=== PATIENT | female | born 1945 | race Caucasian/White ===

== ENCOUNTER 2021-09-11 15:32 | Emergency (ER) | payer OTHER, SELFPAY ==
[~2021-09-11] VITALS: Ht 160 cm; Wt 56.2 kg
[2021-09-11 16:31] VITALS: BP_SYST 176
--- NOTE | 2021-09-11 16:40 | NUR ---
patient placed in room 3 Dr Wiggins notified, alert, oriented x3 c/o RLE pain/swelling for 1 week.ambulate with steady gait.
[2021-09-11] MEDS ORDERED: LABETALOL 100 MG/ 20ML VIAL IVP ONE ×2 (16:45→19:45)
[2021-09-11] MEDS ORDERED: MULT-1089 PO (16:47)
[2021-09-11] MEDS ORDERED: PROP80CA55 PO (16:47)
[2021-09-11] MEDS ORDERED: VITD400 PO (16:47)
[2021-09-11] MEDS ORDERED: MEMA10TA PO (16:47)
[2021-09-11] MEDS ORDERED: DIAZ5TAB4 PO (16:47)
[2021-09-11] MEDS ORDERED: ENAL10TA19 PO (16:47)
--- NOTE | 2021-09-11 16:55 | NUR ---
patient BP improved without Med administered Dr Wiggins notified, and replied to hold IV med.
[2021-09-11 17:24] LABS: ANION GAP 6 (5-15); CALCIUM 8.5 mg/dL (8.4-11.0); CHLORIDE 102 mmol/L (98-107); CREATININE 0.73 mg/dL (0.55-1.30); GLUCOSE 97 mg/dL (70-99); POTASSIUM 3.4 mmol/L (3.5-5.1); SODIUM SERUM 140 mmol/L (136-145); UREA NITROGEN, BLOOD 17 mg/dL (8-21)
[2021-09-11 17:27] LABS: EOSINOPHILS # (AUTO) 0.3 K/uL (0.0-0.4); EOSINOPHILS % (AUTO) 5.8 % (0.0-4.0); HEMATOCRIT 34.3 % (36-48); HEMOGLOBIN 11.5 g/dL (12.0-16.0); LYMPHOCYTES # (AUTO) 1.1 K/uL (1.0-5.5); LYMPHOCYTES % (AUTO) 23.4 % (20.5-51.5); MEAN CORPUSCULAR HEMOGLOBIN 30 pg (27-31); MEAN CORPUSCULAR HGB CONC 34 % (32-36); MEAN CORPUSCULAR VOLUME 89 fL (79.0-98.0); MONOCYTES # (AUTO) 0.5 K/uL (0.0-1.0); MONOCYTES % (AUTO) 10.4 % (1.7-9.3); NEUTROPHILS # (AUTO) 2.9 K/uL (1.8-7.7); NEUTROPHILS % (AUTO) 59.4 % (40.0-70.0); PLATELET COUNT (AUTO) 187 K/uL (130-430); RED BLOOD CELL COUNT(AUTO) 3.85 MIL/uL (4.2-6.2); RED CELL DISTRIBUTION WIDTH 14.7 % (9.0-15.0); WHITE BLOOD COUNT (AUTO) 4.8 K/uL (4.8-10.8)
[2021-09-11 17:44] LABS: ALANINE AMINOTRANSFERASE 15 U/L (12-78); ALBUMIN 3.1 g/dL (3.4-4.8); ASPARTATE AMINOTRANSFERASE 21 U/L (10-37); TOTAL BILIRUBIN 0.3 mg/dL (0.0-1.0)
--- NOTE | 2021-09-11 19:15 | NUR ---
PATIENT RESTING IN BED WITH EYES OPEN, NO C/O PAIN OR S/S OF DISCOMFORT. PATIENT'S CHEST RISE AND FALL SYMMETRICAL. BED IN LOW AND LOCKED POSITION.
--- NOTE | 2021-09-11 19:15 | NUR ---
report endorsed to nurse Cee all questions answered.
[2021-09-11 20:30] VITALS: BP_SYST 154
[2021-09-11] MEDS ORDERED: FUROSEMIDE 40 MG/4 ML VIAL IVP ONE (20:30)
[2021-09-11] MEDS ORDERED: POTA-197 PO (20:33)
--- NOTE | 2021-09-11 20:33 | NUR ---
ER doctor informed of patient's low potassium level and albumin level result. Er doctor stated that she "will give order for potassium but not albumin."
[2021-09-11] MEDS ORDERED: POTASSIUM CHLORIDE 20 MEQ/PKT PACKET PO ONE (20:45)
== END 2021-09-11 21:40 | disposition home or self-care (01) ==
LOC: SED 15:32
DX: R60.0 Localized edema (principal); D64.9 Anemia, unspecified; E87.70 Fluid overload, unspecified; E87.6 Hypokalemia; I10 Essential (primary) hypertension
CPT/HCPCS: 36415; 80053; 83880; 85025; 93971; 96374; 96376; 99285; J3490; 96375; 99284

== ENCOUNTER 2021-10-22 16:03 | Inpatient (IN) | payer OTHER, SELFPAY ==
[~2021-10-22] VITALS: Ht 157.5 cm; Wt 48.1 kg
[~2021-10-22 16:03] MED LIST: DIAZ5TAB4 PO; ENAL10TA19 PO; MEMA10TA PO; MULT-1089 PO; POTA-197 PO; PROP80CA55 PO; VITD400 PO
[2021-10-22 16:05] VITALS: BP_SYST 146
[2021-10-22 16:59] LABS: ANION GAP 7 (5-15); CALCIUM 9.4 mg/dL (8.4-11.0); CREATININE 0.82 mg/dL (0.55-1.30); GLUCOSE 113 mg/dL (70-99); UREA NITROGEN, BLOOD 20 mg/dL (8-21)
[2021-10-22 17:09] LABS: ALANINE AMINOTRANSFERASE 21 U/L (12-78); ALBUMIN 3.5 g/dL (3.4-4.8); ASPARTATE AMINOTRANSFERASE 26 U/L (10-37); TOTAL BILIRUBIN 0.1 mg/dL (0.0-1.0)
[2021-10-22 17:11] LABS: BASOPHILS % (AUTO) 0.4 % (0.0-2.0); EOSINOPHILS # (AUTO) 0.1 K/uL (0.0-0.4); EOSINOPHILS % (AUTO) 1.9 % (0.0-4.0); HEMATOCRIT 35.7 % (36-48); HEMOGLOBIN 12.1 g/dL (12.0-16.0); LYMPHOCYTES # (AUTO) 0.9 K/uL (1.0-5.5); LYMPHOCYTES % (AUTO) 22.2 % (20.5-51.5); MEAN CORPUSCULAR HEMOGLOBIN 29 pg (27-31); MEAN CORPUSCULAR HGB CONC 34 % (32-36); MEAN CORPUSCULAR VOLUME 86 fL (79.0-98.0); MONOCYTES # (AUTO) 0.6 K/uL (0.0-1.0); MONOCYTES % (AUTO) 13.1 % (1.7-9.3); NEUTROPHILS # (AUTO) 2.7 K/uL (1.8-7.7); NEUTROPHILS % (AUTO) 62.4 % (40.0-70.0); PLATELET COUNT (AUTO) 230 K/uL (130-430); RED BLOOD CELL COUNT(AUTO) 4.15 MIL/uL (4.2-6.2); RED CELL DISTRIBUTION WIDTH 14.6 % (9.0-15.0); WHITE BLOOD COUNT (AUTO) 4.3 K/uL (4.8-10.8)
[2021-10-22 17:14] LABS: POTASSIUM 2.7 mmol/L (3.5-5.1); SODIUM SERUM 117 mmol/L (136-145)
[2021-10-22 17:15] LABS: CHLORIDE 80 mmol/L (98-107)
[2021-10-22] MEDS ORDERED: KCL 20 mEq in 100 mL (PREMIX) 100 ML IV ONE (17:45)
[2021-10-22] MEDS ORDERED: KCL 40 mEq in 100 mL (PREMIX) 100 ML IV ONE (17:45)
[2021-10-22] MEDS ORDERED: FURO-150 PO (18:01)
[2021-10-22] MEDS ORDERED: HYG25 PO (18:01)
[2021-10-22] MEDS ORDERED: ENAL20TA18 PO (18:01)
[2021-10-22] MEDS ORDERED: ASPI-989 PO (18:01)
[2021-10-22] MEDS ORDERED: POTASSIUM CHLORIDE 20 MEQ TAB.PRT.SR PO ONE (19:00)
[2021-10-22 21:07] LABS: BILIRUBIN,URINE NEGATIVE (NEGATIVE); BLOOD, URINE NEGATIVE (NEGATIVE); CLARITY/URINE CLEAR (CLEAR); GLUCOSE,URINE NEGATIVE (NEGATIVE); KETONES,URINE NEGATIVE (NEGATIVE); LEUKOCYTE ESTERASE ,URINE NEGATIVE (NEGATIVE); NITRITE, URINE NEGATIVE (NEGATIVE); PH,URINE 6.5 (5.0-8.0); PROTEIN URINE NEGATIVE (NEGATIVE); UROBILINOGEN,URINE 0.2 (0.2-1.0)
[2021-10-22 21:09] LABS: COLOR,URINE STRAW (YELLOW)
[2021-10-22 21:56] VITALS: BP_SYST 139
[2021-10-23 00:04] VITALS: BP_SYST 139
[2021-10-23 00:14] VITALS: BP_SYST 124
[2021-10-23] MEDS ORDERED: NACL 0.9% 1,000 ML IV SCH (02:15)
[2021-10-23] MEDS ORDERED: ALBUTEROL SULFATE 0.083% 2.5 MG/3 ML VIAL.NEB INH PRN (02:15)
[2021-10-23] MEDS ORDERED: ACETAMINOPHEN 325 MG TABLET PO PRN (02:15)
[2021-10-23] MEDS ORDERED: ONDANSETRON HCL 4 MG/2 ML VIAL IVP PRN (02:15)
[2021-10-23 03:29] VITALS: BP_SYST 124
[2021-10-23 06:42] LABS: BASOPHILS % (AUTO) 0.4 % (0.0-2.0); EOSINOPHILS # (AUTO) 0.1 K/uL (0.0-0.4); EOSINOPHILS % (AUTO) 3.9 % (0.0-4.0); HEMATOCRIT 36.2 % (36-48); LYMPHOCYTES # (AUTO) 0.9 K/uL (1.0-5.5); LYMPHOCYTES % (AUTO) 27.6 % (20.5-51.5); MEAN CORPUSCULAR HEMOGLOBIN 29 pg (27-31); MEAN CORPUSCULAR HGB CONC 33 % (32-36); MEAN CORPUSCULAR VOLUME 87 fL (79.0-98.0); MONOCYTES # (AUTO) 0.5 K/uL (0.0-1.0); MONOCYTES % (AUTO) 15.8 % (1.7-9.3); NEUTROPHILS # (AUTO) 1.7 K/uL (1.8-7.7); NEUTROPHILS % (AUTO) 52.3 % (40.0-70.0); PLATELET COUNT (AUTO) 192 K/uL (130-430); RED BLOOD CELL COUNT(AUTO) 4.17 MIL/uL (4.2-6.2); RED CELL DISTRIBUTION WIDTH 14.6 % (9.0-15.0); WHITE BLOOD COUNT (AUTO) 3.2 K/uL (4.8-10.8)
[2021-10-23 07:01] LABS: ALANINE AMINOTRANSFERASE 17 U/L (12-78); ANION GAP 6 (5-15); ASPARTATE AMINOTRANSFERASE 26 U/L (10-37); CALCIUM 9.1 mg/dL (8.4-11.0); CHLORIDE 88 mmol/L (98-107); CREATININE 0.59 mg/dL (0.55-1.30); GLUCOSE 94 mg/dL (70-99); SODIUM SERUM 126 mmol/L (136-145); TOTAL BILIRUBIN 0.1 mg/dL (0.0-1.0); UREA NITROGEN, BLOOD 17 mg/dL (8-21)
[2021-10-23 07:48] LABS: POTASSIUM 2.3 mmol/L (3.5-5.1)
[2021-10-23 08:00] VITALS: BP_SYST 130
[2021-10-23] MEDS: POTASSIUM CHLORIDE 20 MEQ TAB.PRT.SR PO SCH (08:36)
[2021-10-23] MEDS: PROPRANOLOL HCL 80 MG (INDERAL LA 80MG) PO SCH (08:36)
[2021-10-23] MEDS: lisinopriL 20 MG TABLET PO SCH (08:36)
[2021-10-23] MEDS: MEMANTINE HCL 5 MG TABLET PO SCH ×2 (08:37→21:45)
[2021-10-23] MEDS: ASPIRIN 325 MG TABLET PO SCH (08:37)
[2021-10-23] MEDS ORDERED: POTASSIUM CHLORIDE 60 MEQ in NS 500 ML IV SCH (09:00)
[2021-10-23] MEDS ORDERED: ENALAPRIL MALEATE (VASOTEC) Non-Formular 10 MG TABLET PO SCH (09:00)
[2021-10-23 12:00] VITALS: BP_SYST 140
[2021-10-23 16:00] VITALS: BP_SYST 139
[2021-10-23] MEDS: NACL 0.9% 1,000 ML IV SCH (21:43)
[2021-10-24 00:10] VITALS: BP_SYST 147
[2021-10-24 04:00] VITALS: BP_SYST 156
[2021-10-24] MEDS: MEMANTINE HCL 5 MG TABLET PO SCH ×2 (08:33→20:41)
[2021-10-24] MEDS: ASPIRIN 325 MG TABLET PO SCH (08:33)
[2021-10-24] MEDS: POTASSIUM CHLORIDE 20 MEQ TAB.PRT.SR PO SCH (08:33)
[2021-10-24] MEDS: lisinopriL 20 MG TABLET PO SCH (08:33)
[2021-10-24] MEDS: PROPRANOLOL HCL 80 MG (INDERAL LA 80MG) PO SCH (08:34)
[2021-10-24 08:39] VITALS: BP_SYST 152
[2021-10-24 09:55] LABS: ALANINE AMINOTRANSFERASE 20 U/L (12-78); ANION GAP 5 (5-15); ASPARTATE AMINOTRANSFERASE 31 U/L (10-37); CALCIUM 9.6 mg/dL (8.4-11.0); CHLORIDE 96 mmol/L (98-107); CREATININE 0.65 mg/dL (0.55-1.30); GLUCOSE 102 mg/dL (70-99); POTASSIUM 3.2 mmol/L (3.5-5.1); SODIUM SERUM 131 mmol/L (136-145); THYROID STIMULATING HORMONE 2.47 uIu/mL (0.36-3.74); TOTAL BILIRUBIN 0.1 mg/dL (0.0-1.0); UREA NITROGEN, BLOOD 19 mg/dL (8-21)
[2021-10-24] MEDS ORDERED: POTASSIUM CHLORIDE 20 MEQ/PKT PACKET PO ONE (10:30)
[2021-10-24 12:00] VITALS: BP_SYST 145
[2021-10-24] MEDS: NACL 0.9% 1,000 ML IV SCH (15:14)
[2021-10-24 17:07] VITALS: BP_SYST 138
[2021-10-24 20:49] VITALS: BP_SYST 183
[2021-10-25 00:39] VITALS: BP_SYST 131
[2021-10-25 08:22] LABS: CREATININE 0.67 mg/dL (0.55-1.30); GLUCOSE 87 mg/dL (70-99); UREA NITROGEN, BLOOD 21 mg/dL (8-21)
[2021-10-25] MEDS: POTASSIUM CHLORIDE 20 MEQ TAB.PRT.SR PO SCH (08:22)
[2021-10-25] MEDS: ASPIRIN 325 MG TABLET PO SCH (08:22)
[2021-10-25] MEDS: MEMANTINE HCL 5 MG TABLET PO SCH ×2 (08:22→21:46)
[2021-10-25] MEDS: lisinopriL 20 MG TABLET PO SCH (08:24)
[2021-10-25] MEDS: PROPRANOLOL HCL 80 MG (INDERAL LA 80MG) PO SCH (08:24)
[2021-10-25 08:45] VITALS: BP_SYST 161
[2021-10-25 09:39] LABS: ANION GAP 9 (5-15); CHLORIDE 95 mmol/L (98-107); POTASSIUM 3.5 mmol/L (3.5-5.1); SODIUM SERUM 133 mmol/L (136-145)
[2021-10-25 11:38] VITALS: BP_SYST 157
[2021-10-25 13:22] VITALS: BP_SYST 157
[2021-10-25 16:21] VITALS: BP_SYST 151
[2021-10-26 05:12] VITALS: BP_SYST 176
[2021-10-26 05:15] VITALS: BP_SYST 176
[2021-10-26] MEDS: lisinopriL 20 MG TABLET PO SCH (07:57)
[2021-10-26] MEDS: POTASSIUM CHLORIDE 20 MEQ TAB.PRT.SR PO SCH (07:58)
[2021-10-26] MEDS: PROPRANOLOL HCL 80 MG (INDERAL LA 80MG) PO SCH (07:58)
[2021-10-26] MEDS: MEMANTINE HCL 5 MG TABLET PO SCH (07:58)
[2021-10-26] MEDS: ASPIRIN 325 MG TABLET PO SCH (07:58)
[2021-10-26 08:00] VITALS: BP_SYST 165
[2021-10-26 08:01] VITALS: BP_SYST 165
[2021-10-26 08:55] LABS: ANION GAP 9 (5-15); CALCIUM 8.8 mg/dL (8.4-11.0); CHLORIDE 98 mmol/L (98-107); CREATININE 0.51 mg/dL (0.55-1.30); GLUCOSE 94 mg/dL (70-99); POTASSIUM 3.7 mmol/L (3.5-5.1); SODIUM SERUM 135 mmol/L (136-145); UREA NITROGEN, BLOOD 18 mg/dL (8-21)
== END 2021-10-26 11:35 | disposition home or self-care (01) | DRG 641 ==
LOC: SED 16:03 → STU 17:38 → OBSVTOIN 23:39 → SMU 10-24 15:02
PROVIDERS: ADMIT Internal Medicine Hospice and Palliative Medicine; ATTEND Internal Medicine Hospice and Palliative Medicine
DX: E87.1 Hypo-osmolality and hyponatremia (principal); F02.80 Dementia in other diseases classified elsewhere, unspecified severity, without behavioral disturbance, psychotic disturbance, mood disturbance, and anxiety; E87.6 Hypokalemia; G30.9 Alzheimer's disease, unspecified; F41.9 Anxiety disorder, unspecified; I10 Essential (primary) hypertension; R07.89 Other chest pain; Z20.822 Contact with and (suspected) exposure to COVID-19; T50.2X5A Adverse effect of carbonic-anhydrase inhibitors, benzothiadiazides and other diuretics, initial encounter; Z88.2 Allergy status to sulfonamides; Z88.1 Allergy status to other antibiotic agents; Z88.0 Allergy status to penicillin; Z88.8 Allergy status to other drugs, medicaments and biological substances; Z79.899 Other long term (current) drug therapy; Z79.82 Long term (current) use of aspirin; Y92.89 Other specified places as the place of occurrence of the external cause
CPT/HCPCS: 36415; 71045; 80048; 80053; 81003; 83735; 83880; 84443; 84484; 85025; 93005; 93306; G0378; J3480; J7040